=== PATIENT | female | born 1970 | race Caucasian/White ===

== ENCOUNTER 2023-12-02 10:11 | Emergency (ER) | payer BC ==
[2023-12-02] MEDS ORDERED: Metoclopramide 10 MG/2 ML SDV IVPUSH ONE (11:01)
[2023-12-02] MEDS: Ondansetron 4 MG/2 ML SDV IVPUSH ONE (11:19)
[2023-12-02] MEDS: diphenhydrAMINE 50 MG/ML SDV IVPUSH ONE (11:19)
[2023-12-02] MEDS: Sodium Chloride 0.9% 1,000 ML IV ONE (11:19)
[2023-12-02] MEDS ORDERED: Naloxone 0.4 MG/ML SDV IVPUSH PRN (11:26)
[2023-12-02 11:32] LABS: BASOPHILS PERCENT AUTO 0.9 % (0.0-1.0); EOSINOPHILS PERCENT AUTO 0.4 % (0.0-6.0); HEMATOCRIT 38.9 % (37.0-47.0); HEMOGLOBIN 13.2 gm/dl (12.0-16.0); IMMATURE GRAN ABSOLUTE AUTO 0.02 K/mm3 (0.00-0.05); IMMATURE GRAN PERCENT AUTO 0.4 % (0.0-0.4); LYMPHOCYTES ABSOLUTE AUTO 0.7 K/mm3 (1.0-4.8); LYMPHOCYTES PERCENT AUTO 15.2 % (24.0-44.0); MEAN CORPUSCULAR HGB CONC 33.9 g/dl (32.0-36.0); MEAN CORPUSCULAR VOLUME 94.2 fl (83.0-99.0); MEAN PLATELET VOLUME 9.1 fl (9.4-12.3); MONOCYTES ABSOLUTE AUTO 0.2 K/mm3 (0.0-0.8); MONOCYTES PERCENT AUTO 4.5 % (0.0-8.0); NEUTROPHILS ABSOLUTE AUTO 3.5 K/mm3 (1.8-7.7); NEUTROPHILS PERCENT AUTO 78.6 % (41.0-71.0); PLATELET COUNT,PLT 188 K/mm3 (150-400); RED BLOOD CELL COUNT 4.13 M/mm3 (4.10-5.30); WHITE BLOOD CELL COUNT,WBC 4.48 K/mm3 (3.9-11.3)
[2023-12-02] MEDS: fentaNYL 100 MCG/2 ML SDV IVPUSH ONE (11:32)
[2023-12-02 11:48] LABS: A/G RATIO 1.2 (1-2); ALBUMIN 4.2 g/dl (3.4-5.0); ANION GAP 12.9 (5-15); BILIRUBIN TOTAL 0.5 mg/dL (0.2-1.0); BUN/CREATININE RATIO 7.5 (14-18); CALCIUM 9.7 mg/dL (8.5-10.1); CREATININE 1.2 mg/dL (0.55-1.02); EST CRCL DRUG DOSING (CG) 43.37 mL/min; POTASSIUM,K 3.9 mEq/L (3.5-5.1); PROTEIN TOTAL,TP 7.8 g/dl (6.4-8.2)
[2023-12-02 11:53] LABS: SLIDE REVIEW ABNORMAL SMEAR
[2023-12-02] MEDS: Ketorolac 30 MG/ML SDV IVPUSH ONE (12:34)
== END 2023-12-02 13:56 | disposition home or self-care (01) ==
LOC: JD.ED 10:11
DX: G43.809 Other migraine, not intractable, without status migrainosus (principal); I10 Essential (primary) hypertension; E03.9 Hypothyroidism, unspecified; Z86.16 Personal history of COVID-19; Z90.49 Acquired absence of other specified parts of digestive tract; Z90.710 Acquired absence of both cervix and uterus; Z87.891 Personal history of nicotine dependence; Z79.899 Other long term (current) drug therapy; Z88.5 Allergy status to narcotic agent; Z88.8 Allergy status to other drugs, medicaments and biological substances
CPT/HCPCS: 36415; 70450; 70450-26; 80053; 85025; 96361; 96374; 96375; 99284-25; J1200; J1885; J2405; J3010; J7030